=== PATIENT | male | born 1970 | race Caucasian/White ===

== ENCOUNTER 2022-07-08 00:38 | Emergency (ER) | payer OTHER ==
[2022-07-08 01:31] LABS: HEMOGLOBIN 14.9 gm/dl (14.0-17.5); RED BLOOD COUNT 4.79 M/UL (4.20-5.50); WHITE BLOOD COUNT 15.5 K/UL (4.5-11.0)
[2022-07-08 01:34] LABS: BUN/CREATININE RATIO 15 (0-10)
== END 2022-07-08 08:35 | disposition other institution (70) ==
LOC: ER1 00:38
PROVIDERS: Physician Assistant
DX: N13.2 Hydronephrosis with renal and ureteral calculous obstruction (principal); F17.200 Nicotine dependence, unspecified, uncomplicated; Z87.440 Personal history of urinary (tract) infections
CPT/HCPCS: 80053; 81001; 85025; 93005; 96374; 96375; 96376; 99285; J1170; J2270; J2405